=== PATIENT | male | born 1945 | race Caucasian/White ===

== ENCOUNTER → 2019-05-27 06:57 | Outpatient (CLI) | payer MEDICARE, OTHER, SELFPAY ==
[2019-05-27 08:35] LABS: Add Manual Diff / Slide Review NO; Basophils Absolute Auto 0 /uL (0-100); Basophils Percent Auto 0.3 % (0-2); Eosinophils Absolute Auto 100 /uL (0-450); Eosinophils Percent Auto 2.1 % (2-4); Hematocrit 44.1 % (41-53); Hemoglobin 14.5 g/dL (13.5-17.5); Lymphocytes Absolute Auto 2300 /uL (1100-4500); Lymphocytes Percent Auto 33.1 % (25-40); Mean Corpuscular HGB Conc 32.8 % (30-36); Mean Corpuscular Hemoglobin 31.6 PG (26-34); Mean Corpuscular Volume 96.2 fL (80-100); Monocytes Absolute Auto 500 /uL (0-900); Neutrophils Absolute Auto 3900 /uL (1500-7000); Neutrophils Percent Auto 56.5 % (50-75); Platelet Count 302 X10^3/uL (150-400); Red Blood Cell Count 4.58 X10^6/uL (4.5-5.9); Red Cell Distribution Width 13.8 % (11.6-14.8); White Blood Cell Count 6.8 X10^3/uL (4.5-11.0)
[2019-05-27 08:57] LABS: Alanine Aminotransferase 25 IU/L (21-72); Albumin 4.5 g/dL (3.5-5.0); Albumin Globulin Ratio 1.6 (1.0-2.8); Alkaline Phosphatase 44 U/L (38-126); Aspartate Aminotransferase 26 IU/L (17-59); BUN Creatinine Ratio 18.6 (6-22); Bilirubin Total 0.6 mg/dL (0.2-1.3); Blood Urea Nitrogen 13 mg/dL (9-20); Calcium 9.1 mg/dL (8.4-10.2); Carbon Dioxide 30 mmol/L (22-32); Chloride 99 mmol/L (98-107); Cholesterol 199 mg/dL (140-199); Estimated Glomerular Filt Rate > 60.0 mL/min (>60); Globulin 2.8 g/dL (1.7-4.1); Glucose 100 mg/dL (80-110); HDL Cholesterol 48 mg/dL (40-60); HEMOLYSIS < 15 (0-50); LDL Cholesterol Calculated 127 mg/dL (<100); Potassium 4.6 mmol/L (3.4-5.1); Sodium 138 mmol/L (137-145); Total Protein 7.3 g/dL (6.3-8.2); Triglycerides 122 mg/dL (35-150)
[2019-05-27 09:26] LABS: TSH w/ Reflex to FT4 2.58 uIU/mL (0.47-4.68)
[2019-05-27 09:32] LABS: Prostate Specific Antigen Scrn 4.09 ng/mL (0.1-4.0)
== END ==
PROVIDERS: Family Provider Family Medicine; PCP Family Medicine; Visit Provider Family Medicine
DX: E78.00 Pure hypercholesterolemia, unspecified (principal); Z12.5 Encounter for screening for malignant neoplasm of prostate
CPT/HCPCS: 36415; 80053; 80061; 84443; 85025; G0103

== ENCOUNTER → 2020-06-03 07:28 | Outpatient (CLI) | payer MEDICARE, OTHER, SELFPAY ==
[2020-06-03 08:36] LABS: Add Manual Diff / Slide Review NO; Basophils Absolute Auto 0 /uL (0-100); Basophils Percent Auto 0.4 % (0-2); Eosinophils Absolute Auto 100 /uL (0-450); Eosinophils Percent Auto 2.1 % (2-4); Hemoglobin 14.2 g/dL (13.5-17.5); Lymphocytes Absolute Auto 2000 /uL (1100-4500); Lymphocytes Percent Auto 31.5 % (25-40); Mean Corpuscular HGB Conc 33.8 % (30-36); Mean Corpuscular Hemoglobin 32.2 PG (26-34); Mean Corpuscular Volume 95.4 fL (80-100); Monocytes Absolute Auto 500 /uL (0-900); Monocytes Percent Auto 7.7 % (3-14); Neutrophils Absolute Auto 3700 /uL (1500-7000); Neutrophils Percent Auto 58.3 % (50-75); Platelet Count 293 X10^3/uL (150-400); Red Cell Distribution Width 13.5 % (11.6-14.8); White Blood Cell Count 6.3 X10^3/uL (4.5-11.0)
[2020-06-03 09:22] LABS: Alanine Aminotransferase 34 IU/L (<50); Albumin 4.4 g/dL (3.5-5.0); Albumin Globulin Ratio 1.5 (1.0-2.8); Alkaline Phosphatase 48 U/L (38-126); Aspartate Aminotransferase 36 IU/L (17-59); BUN Creatinine Ratio 18.8 (6-22); Bilirubin Total 0.6 mg/dL (0.2-1.3); Blood Urea Nitrogen 16 mg/dL (9-20); Calcium 9.6 mg/dL (8.4-10.2); Carbon Dioxide 33 mmol/L (22-32); Chloride 101 mmol/L (98-107); Cholesterol 191 mg/dL (140-199); Estimated Glomerular Filt Rate > 60.0 mL/min (>60); Globulin 2.9 g/dL (1.7-4.1); Glucose 122 mg/dL (80-110); HDL Cholesterol 69 mg/dL (40-60); HEMOLYSIS < 15 (0-50); LDL Cholesterol Calculated 107 mg/dL (<100); Sodium 139 mmol/L (137-145); Total Protein 7.3 g/dL (6.3-8.2); Triglycerides 73 mg/dL (35-150)
[2020-06-03 09:23] LABS: Potassium 5.6 mmol/L (3.4-5.1)
[2020-06-03 09:34] LABS: TSH w/ Reflex to FT4 2.47 uIU/mL (0.47-4.68)
[2020-06-03 09:36] LABS: Prostate Specific Antigen Scrn 3.85 ng/mL (0.1-4.0)
== END ==
PROVIDERS: Family Provider Family Medicine; PCP Family Medicine; Referring Provider Family Medicine; Visit Provider Family Medicine
DX: E78.00 Pure hypercholesterolemia, unspecified (principal); Z12.5 Encounter for screening for malignant neoplasm of prostate; Z13.1 Encounter for screening for diabetes mellitus; Z13.6 Encounter for screening for cardiovascular disorders
CPT/HCPCS: 36415; 80053; 80061; 84443; 85025; G0103

== ENCOUNTER → 2021-10-08 07:57 | Outpatient (CLI) | payer MEDICARE, OTHER, SELFPAY ==
[2021-10-09 14:42] LABS: PSA, Total 10.6 ng/mL (0.0-4.0)
== END ==
PROVIDERS: Family Provider Family Medicine; PCP Family Medicine; Referring Provider Urology; Visit Provider Urology
DX: R97.20 Elevated prostate specific antigen [PSA] (principal)
CPT/HCPCS: 36415; 84153; 84154

== ENCOUNTER → 2022-01-11 07:21 | Outpatient (CLI) | payer MEDICARE, SELFPAY ==
[2022-01-12 07:09] LABS: PSA Free % 17.8 % (.); PSA, Total 10.7 ng/mL (0.0-4.0)
== END ==
PROVIDERS: Family Provider Family Medicine; PCP Family Medicine; Referring Provider Urology; Visit Provider Urology
DX: R97.20 Elevated prostate specific antigen [PSA] (principal)
CPT/HCPCS: 36415; 84153; 84154

== ENCOUNTER → 2022-01-16 09:03 | Outpatient (CLI) | payer MEDICARE, SELFPAY ==
[2022-01-16 11:01] LABS: COVID19 -Nasal RAPID Negative (Negative)
== END ==
PROVIDERS: Family Provider Family Medicine; PCP Family Medicine; Visit Provider Surgery
DX: Z20.822 Contact with and (suspected) exposure to COVID-19 (principal); Z01.812 Encounter for preprocedural laboratory examination
CPT/HCPCS: 87635; C9803

== ENCOUNTER 2022-01-17 07:59 | Day surgery (SDC) | payer MEDICARE, OTHER, SELFPAY ==
[2022-01-17 08:23] VITALS: BMI 25.0
[2022-01-17 08:29] VITALS: BP 156/89; PULSE 60; RESP 16; TEMP 35.7; O2SAT 98
--- NOTE | 2022-01-17 08:54 | P.HP_ITS ---
History of Present Illness History of Present Illness Date Patient Seen: 01/17/22 Time Patient Seen: 08:54 Chief complaint: Colonscopy Narrative: The patient presents for colorectal screening. Most recent colonoscopy was approximately 5 years ago significant for benign polyps. No personal or family history of colon cancer. On further history denies any recent gastrointestinal symptoms with the exception of occasional constipation. No nausea, vomiting, abdominal pain, loss of appetite, unexplained weight loss, change in bowel habits, diarrhea, melena, hematochezia, or bright red blood per rectum. Patient History Medical History Alcohol use Family history of prostate cancer Urinary frequency Surgical History Status post laminectomy Family & Social History Tobacco & Substance use: Tobacco type cannabis/marijuana Smoking Status Former smoker alcohol intake current Substance Use Type marijuana Meds Home Medications and Allergies Home Medications Medication Instructions Recorded Confirmed Type multivitamin (Multiple Vitamins) 1 tab PO QDAY ##0 07/10/17 01/17/22 History Allergies Allergy/AdvReac Type Severity Reaction Status Date / Time Penicillins [PENICILLINS] Allergy Mild SWELLING Verified 01/17/22 08:21 Exam Vital Signs (past 8 hours): - 01/17/22 08:29 Temperature 96.2 F L Pulse Rate 60 Respiratory Rate 16 Blood Pressure 156/89 H Pulse Oximetry 98 Oxygen Delivery Method Room Air Oxygen Delivery Method Room Air Narrative Exam Narrative: General adult male alert oriented no acute distress Chest nonlabored respirations Abdomen soft nontender nondistended Assessment & Plan Assessment & Plan narrative: The patient requires colorectal screening and colonoscopy is recommended. Te chnical details were discussed. Risks, benefits, alternatives explained. Risks including but not limited to myocardial infarction, aspiration, bleeding, pain, missed lesion, incomplete examination, need for further radiographic studies, colonic perforation, and need for major abdominal surgery were discussed. All questions were answered to their satisfaction, and they are in agreement with this plan. Time Spent With Patient Critical Care time: I spent a total of [] minutes of critical care time on this patient's care today; this time is exclusive of procedural time.
[2022-01-17] MEDS: LACTATED RINGERS 1,000 ML 200 ML IV (09:00)
--- NOTE | 2022-01-17 09:24 | PM.OP.COLON ---
Operative Date/Time/Diagnoses Date of procedure: 01/17/22 Time of procedure: 09:25 Pre-op diagnosis: Personal history of colonic polyps Post-op diagnosis: same Procedure & Clinicians Study performed: Colonoscopy Same procedure as scheduled: Yes Indications: Personal history of colon polyps Surgeon: Marino Walters Procedure Notes Procedure in detail: Medications: Conscious sedation using 5mg IV midazolam and 100mcg IV of fentanyl The history and physical was performed/updated and the patient is ASA class is 2. The procedure was discussed in detail with the patient. Potential risks complications including infection, bleeding, missed diagnosis, perforation, need for surgery, and were explained. Their questions were answered and informed consent was obtained. Patient was brought to the procedure room and placed standard monitoring equipment. The patient's vital signs were monitored continuously throughout the entire procedure. Prior to starting time-out was performed. The patient was placed in the left lateral recumbent position. Procedural sedation was administered. Examination began with a thorough inspection of the perianal area there was no evidence of fissures, fistulae, external hemorrhoids or cutaneous malignancy. The colonoscopy scope was then placed into the anal canal and was advanced to the cecum, which was identified by the ileocecal valve, the appendiceal orifice and the confluence of the taenia. The scope was then slowly withdrawn examining colon thoroughly in all directions, irrigating it of any residual stool. FINDINGS 1. No masses or polyps 2. Diverticulosis-moderate 3. Internal hemorrhoids The patient tolerated the procedure well. They will be discharged once criteria are met. The prep was of good/excellent quality. The withdrawl time was 6 minutes. The sedation time was 12 minutes. Specimen(s): none sent Complications: none Impression: Normal colonoscopy Post-procedure Recommendations: Colonoscopy in 10 years and High fiber diet Disposition: same day surgery
[2022-01-17] MEDS: fentaNYL 250 MCG/5 ML INJ IV (09:25)
[2022-01-17] MEDS: MIDAZOLAM 5 MG/5 ML VIAL IV (09:25)
[2022-01-17 09:29] VITALS: BP 96/52; PULSE 55; RESP 12; TEMP 36.6; O2SAT 95
[2022-01-17 09:34] VITALS: BP 96/54; PULSE 53; RESP 12; O2SAT 94
[2022-01-17 09:39] VITALS: BP 106/68; PULSE 66; RESP 18; TEMP 36.6; O2SAT 97
[2022-01-17 09:41] VITALS: BP 116/73; PULSE 63; RESP 14; O2SAT 97
[2022-01-17 09:45] VITALS: BP 120/82; PULSE 66; RESP 14; O2SAT 97
== END 2022-01-17 10:28 | disposition home or self-care (01) ==
PROVIDERS: Family Provider Family Medicine; PCP Family Medicine; Referring Provider Surgery; Visit Provider Surgery
PROC: 0DJD8ZZ Inspection of Lower Intestinal Tract, Via Natural or Artificial Opening Endoscopic (ICD-10-PCS; CPT 45378; principal; 2022-01-17 09:15)
DX: Z12.11 Encounter for screening for malignant neoplasm of colon (principal); Z86.010 Personal history of colon polyps; K57.30 Diverticulosis of large intestine without perforation or abscess without bleeding; K64.8 Other hemorrhoids
CPT/HCPCS: G0105; 99152; J2250; J3010

== ENCOUNTER → 2022-02-07 06:49 | Outpatient (CLI) | payer MEDICARE, OTHER, SELFPAY ==
--- NOTE | 2022-02-07 06:51 | DI.MRI.S_ITS ---
PROCEDURE: MR PELIS WO/W CON INDICATIONS: Elevated and rising PSA TECHNIQUE: Coronal HASTE, axial T1 FSE with fat saturation, 3-plane nonbreath-hold T2 FSE. After the administration of contrast, dynamic axial, delayed axial and coronal VIBE or 2-D FLASH with fat saturation through the pelvis. Optional diffusion weighted imaging and ADC may be performed. COMPARISON: None. FINDINGS: Image quality: Diffusion weighted and dynamic contrast enhanced images are diagnostic. Prostate: Gland size is 6.6 x 4.7 x 5.7 cm; ellipsoid gland volume is 92 mL. Lesion #1: Size: 1.2 x 0.8 cm Location: Left posterior medial peripheral zone, mid gland (axial ADC series 24, image 13). T2 signal: Heterogeneous signal intensity DWI/ADC signal: Mildly hypointense on ADC images without definite or substantial corresponding DWI hyperintensity DCE: Negative MIRTHA: No large volume bulky extraprostatic extension. However there is long segment abutment of the lesion against the prostate pseudocapsule, difficult to exclude early extraprostatic extension. Seminal vesicle invasion: Absent PI-RADS: T2 signal - 3; ADC - 3; DCE - negative; Overall score: PI-RADS 3. Genitourinary system: A polypoid enhancing structure is present at the left posterior bladder wall near the left ureterovesical junction measuring approximately 1.4 x 0.7 x 1.2 cm (axial T2 series 4, image 4, coronal T2 series 5, image 10). Distal ureters are non distended. Bowel and peritoneum: No pathologic free pelvic fluid. Inferior colon and small bowel loops are normal in caliber. Nodes and vessels: No pelvic or inguinal adenopathy by size criteria. Iliac vessels are normal in caliber. Bones: No definite suspicious lesion identified. IMPRESSION: 1. A 1.2 cm lesion at the left peripheral zone, mid gland is consistent with PI-RADS category 3. As this finding is in the region of the prostate gland central zone, it could represent a pseudolesion rather than prostate carcinoma. If biopsy is performed, targeting this area may be helpful. Otherwise, attention on follow-up is recommended. 2. Incidental note of a 1.4 cm probable intraluminal bladder mass near the left ureterovesical junction. Cystoscopy may be helpful for further evaluation. Dictated by: Ran Ahmadi M.D. on 02/07/2022 at 11:03 Approved by: Ran Ahmadi M.D. on 02/07/2022 at 11:33
== END ==
PROVIDERS: Family Provider Family Medicine; PCP Family Medicine; Referring Provider Urology; Visit Provider Urology
DX: R97.20 Elevated prostate specific antigen [PSA] (principal); Z80.42 Family history of malignant neoplasm of prostate; N42.89 Other specified disorders of prostate
CPT/HCPCS: 72197; A9579

== ENCOUNTER → 2022-05-11 09:28 | Outpatient (CLI) | payer MEDICARE, OTHER, SELFPAY ==
[2022-05-12 07:18] LABS: PSA Free % 15.8 % (.); PSA, Total 10.2 ng/mL (0.0-4.0)
== END ==
PROVIDERS: Family Provider Family Medicine; PCP Family Medicine; Referring Provider Urology; Visit Provider Urology
DX: R97.20 Elevated prostate specific antigen [PSA] (principal)
CPT/HCPCS: 36415; 84153; 84154

== ENCOUNTER → 2022-11-14 08:48 | Outpatient (CLI) | payer MEDICARE, OTHER, SELFPAY ==
[2022-11-17 08:42] LABS: PSA Free % 19.1 % (.); PSA, Total 5.4 ng/mL (0.0-4.0)
== END ==
PROVIDERS: Urology; Family Provider Family Medicine; PCP Family Medicine; Referring Provider Family Medicine; Visit Provider Family Medicine
DX: N42.9 Disorder of prostate, unspecified (principal); R97.20 Elevated prostate specific antigen [PSA]; Z80.42 Family history of malignant neoplasm of prostate
CPT/HCPCS: 36415; 84153; 84154

== ENCOUNTER → 2022-11-24 07:35 | Outpatient (CLI) | payer MEDICARE, OTHER, SELFPAY ==
[2022-11-24 09:41] LABS: Testosterone 531 ng/dL (71.8-623)
== END ==
PROVIDERS: Family Provider Family Medicine; Referring Provider Urology; Visit Provider Urology
DX: R68.82 Decreased libido (principal)
CPT/HCPCS: 36415; 84403

== ENCOUNTER → 2022-12-01 07:24 | Outpatient (CLI) | payer MEDICARE, OTHER, SELFPAY ==
[2022-12-01 09:14] LABS: Testosterone 468 ng/dL (71.8-623)
== END ==
PROVIDERS: Family Provider Family Medicine; Referring Provider Urology; Visit Provider Urology
DX: R68.82 Decreased libido (principal)
CPT/HCPCS: 36415; 84403

== ENCOUNTER → 2023-05-18 13:46 | Outpatient (CLI) | payer MEDICARE, OTHER, SELFPAY ==
[2023-05-20 08:29] LABS: PSA Free % 22.8 % (.); PSA, Total 8.6 ng/mL (0.0-4.0)
== END ==
PROVIDERS: Family Provider Family Medicine; Referring Provider Urology; Visit Provider Urology
DX: R97.20 Elevated prostate specific antigen [PSA] (principal)
CPT/HCPCS: 36415; 84153; 84154

== ENCOUNTER 2023-05-30 05:44 | Emergency (ER) | payer MEDICARE, SELFPAY ==
--- NOTE | 2023-05-30 05:47 | ED.GENADULT ---
HPI - General Adult General Chief complaint: Eye Problems Stated complaint: left eye pain Time Seen by Provider: 05/30/23 05:46 History of Present Illness HPI narrative: 77-year-old male former smoker without chronic medical history presents with a chief complaint of blood in his left eye. He denies any pain or vision change. He denies any fever chills nor any drainage. He does not wear contacts. He states that yesterday he was taking a look at a new house and was in the shop in felt like something fell into his eye and he was rubbing it for much of the day. He states he woke up this morning and noted that the white part of his left eye was covered in blood. He does not take blood thinners. Related Data Home Medications Medication Instructions Recorded Confirmed multivitamin (Multiple Vitamins 1 tab PO QDAY ##0 07/10/17 11/22/22 tablet) Focus Factor- Prostate PO 02/14/22 11/22/22 Allergies Allergy/AdvReac Type Severity Reaction Status Date / Time Penicillins [PENICILLINS] Allergy Mild SWELLING Verified 11/22/22 09:16 Review of Systems Review of Systems Narrative: GENERAL: Denies chills, fatigue, malaise, fever, sweats. HEENT: See HPI RESPIRATORY: Denies dyspnea, cough, wheezing, hemoptysis, sputum. CARDIOVASCULAR: Denies chest pain, palpitations, orthopnea, edema, GASTROINTESTINAL: Denies nausea, vomiting, abdominal pain, diarrhea, constipation, melena. : Denies dysuria, frequency, incontinence, hematuria, urinary retention. MUSCULOSKELETAL: denies weakness, joint pain, or bony pain SKIN: Denies rash, skin lesions, or other NEUROLOGIC: Denies weakness, headache, numbness, change in speech, confusion, seizures, incoordination. PSYCHIATRIC: No concerning psychosocial issues. 12 point review of systems is negative except for those stated above Patient History Medical History Lower urinary tract symptoms Decreased libido Abnormal prostate by palpation Family history of prostate cancer Alcohol use Urinary frequency Surgical History Status post laminectomy Social History marital status: number of children: 1 Previous occupational history: retired Smoking Status: Former smoker alcohol intake: current substance use type: does not use caffeine: Yes Type(s) of exercise: weight lifting frequency: 5-6 times per week duration: 30-45 minutes/day Smoking Status: Former smoker Substance Use Type: marijuana Exam Narrative Exam Narrative: GEN: AOx3 and in mild distress EYES: Pupils are equal, round, and reactive to light and accommodation. Extraoccular muscles are intact bilaterally. Left eye with evidence of subconjunctival hemorrhage. Normal funduscopic exam, visual acuity noted on nurse's notes, vision is better in the affected eye than the unaffected eye. No evidence of foreign body, upper lid everted. No fluorescein uptake CHEST: Lungs are clear to auscultation bilaterally and free of wheezes, rales, or rhonchi. Heart rate is regular rhythm, there are no murmurs, clicks, rubs, or gallops. There is no chest wall tenderness. ABD: Abdomen is soft and nontender. There is no guarding or rebound. Bowel sounds are normal in all 4 quadrants. There is no mass or organomegaly. EXT: Full painless ROM of all extremities with no loss of sensation or strength. SKIN: Warm, pink, and dry. No erythema or rash Initial Vital Signs Initial Vital Signs: Vital Signs Temperature 97.6 F 05/30/23 05:54 Pulse Rate 66 05/30/23 05:54 Respiratory Rate 19 05/30/23 05:54 Blood Pressure 193/93 H 05/30/23 05:54 Pulse Oximetry 95 05/30/23 05:54 Oxygen Delivery Method Room Air 05/30/23 05:54 Course Orders Ordered: Discontinued Medications Fluorescein Sodium (Fluorescein 1 Mg Strip) 1 mg EYE-LEFT NOW ONE Stop: 05/30/23 05:51 Proparacaine HCl (Proparacaine 0.5% Ophth [place]) 1 drops EYE-LEFT NOW ONE Stop: 05/30/23 05:51 Vital Signs Vital signs: Vital Signs - 8 hr 05/30/23 05:54 Temperature 97.6 F Pulse Rate 66 Respiratory Rate 19 Blood Pressure 193/93 H Pulse Oximetry 95 Oxygen Delivery Method Room Air Medical Decision Making [facility] Narrative Medical decision making narrative: [77] year old patient presents with blood in left eye Multiple etiologies for patient's symptoms considered including, but not limited to: [Subconjunctival hemorrhage versus hyphema versus corneal abrasion versus foreign body versus other] Prior Charts reviewed in our EMR Primary Historian: patient Patient has reassuring history and physical exam. No pain, no vision change, does not use contacts. [place] like something may have irritated his eye yesterday, he rubbed it frequently and woke up with blood in the absence of other symptoms. Patient's symptoms improved over duration of stay with above-stated therapies. Findings and discharge diagnosis discussed with patient/family followed by verbalization of understanding Return precautions discussed with patient/family whom verbalize understanding of diagnosis and plan Discharge Plan Departure Patient Disposition: Home Clinical Impression: Subconjunctival hemorrhage Instructions: DI for Subconjunctival Hemorrhage Activity Restrictions/Additional Instructions: *You have been diagnosed with [left eye subconjunctival hemorrhage. As we discussed your history and physical exam are reassuring and there is no evidence of any diagnosis that would require a specific or immediate intervention] *What to do: *Please continue to take your regular medications as directed. [ ] New medication prescriptions sent to your pharmacy: [ ] [ ] New medication written as a paper prescription [ ] No new medications given *Please follow up with Dr. De La Rosa at [facility]. Please call the office later this morning, let them know you were seen in the emergency department and we would like you seen in follow-up. *Return to Emergency Department if you should have any new, worsening or concerning symptoms, such as eye pain, vision change or other concerning symptoms Prescriptions: No Action multivitamin [Multiple Vitamins] 1 EACH tablet 1 tab PO QDAY Qty: 0 Focus Factor- Prostate PO Referrals: Tyson De La Rosa MD [Physician] - Stand Alone Forms: Patient Portal/API
[2023-05-30 05:54] VITALS: BP 193/93; PULSE 66; RESP 19; TEMP 36.4; O2SAT 95; BMI 25.0
[2023-05-30] MEDS: FLUORESCEIN 1 MG STRIP EYE-LEFT (06:00)
[2023-05-30] MEDS: PROPARACAINE 0.5% OPHTH SOL 1 DROPS EYE-LEFT (06:00)
== END 2023-05-30 06:21 | disposition home or self-care (01) ==
PROVIDERS: Emergency Provider Emergency Medicine; Family Provider Family Medicine
DX: H11.32 Conjunctival hemorrhage, left eye (principal)
CPT/HCPCS: 99282

== ENCOUNTER → 2023-09-17 07:29 | Outpatient (CLI) | payer MEDICARE, OTHER, SELFPAY ==
[2023-09-19 09:43] LABS: PSA Free % 21.6 % (.); PSA, Total 6.4 ng/mL (0.0-4.0)
== END ==
PROVIDERS: Family Provider Family Medicine; Referring Provider Urology; Visit Provider Urology
DX: R97.20 Elevated prostate specific antigen [PSA] (principal)
CPT/HCPCS: 36415; 84153; 84154

== ENCOUNTER → 2023-12-10 08:03 | Outpatient (CLI) | payer MEDICARE, OTHER, SELFPAY ==
--- NOTE | 2023-12-10 08:04 | DI.US.S_ITS ---
PROCEDURE: US ABDOMEN LIMITED INDICATIONS: RIGHT INGUINAL PAIN TECHNIQUE: Real-time focused scanning was performed of the abdomen, with image documentation. COMPARISON: None. FINDINGS: Scanning is performed at the area of clinical concern within the right inguinal region. At this site, no findings of hernia can be seen. No masses or other significant abnormality can be seen. IMPRESSION: Negative ultrasound, without a right inguinal hernia seen. Dictated by: Lion Andrews M.D. on 12/10/2023 at 10:27 Approved by: Lion Andrews M.D. on 12/10/2023 at 10:28
== END ==
LOC: US 08:04
PROVIDERS: PCP Family Medicine; Referring Provider Family Medicine; Visit Provider Family Medicine
DX: R10.31 Right lower quadrant pain (principal)
CPT/HCPCS: 76705

== ENCOUNTER → 2024-03-06 08:18 | Outpatient (CLI) | payer MEDICARE, OTHER, SELFPAY | PROVIDERS: PCP Family Medicine; Referring Provider Nurse Practitioner Family; Visit Provider Nurse Practitioner Family | DX: J02.9 Acute pharyngitis, unspecified (principal) | CPT/HCPCS: 87070 ==

== ENCOUNTER → 2024-03-14 07:31 | Outpatient (CLI) | payer MEDICARE, OTHER, SELFPAY ==
[2024-03-15 07:36] LABS: PSA Free % 20.1 % (.); PSA, Total 7.5 ng/mL (0.0-4.0)
== END ==
PROVIDERS: PCP Family Medicine; Referring Provider Urology; Visit Provider Urology
DX: R97.20 Elevated prostate specific antigen [PSA] (principal)
CPT/HCPCS: 36415; 84153; 84154

== ENCOUNTER → 2024-03-26 08:05 | Outpatient (CLI) | payer MEDICARE, OTHER, SELFPAY | PROVIDERS: PCP Family Medicine; Referring Provider Urology; Visit Provider Urology | DX: R39.9 Unspecified symptoms and signs involving the genitourinary system (principal); R97.20 Elevated prostate specific antigen [PSA]; N40.1 Benign prostatic hyperplasia with lower urinary tract symptoms; Z68.26 Body mass index [BMI] 26.0-26.9, adult | CPT/HCPCS: 81002; 87077; 87086; 87186; 99214 ==

== ENCOUNTER → 2024-06-03 11:34 | Outpatient (CLI) | payer MEDICARE, OTHER, SELFPAY ==
[2024-06-03 12:26] LABS: Estimated Glomerular Filt Rate > 60 mL/min (>60)
== END ==
PROVIDERS: PCP Family Medicine; Referring Provider Radiology Diagnostic Radiology; Visit Provider Radiology Diagnostic Radiology
DX: N40.1 Benign prostatic hyperplasia with lower urinary tract symptoms (principal)
CPT/HCPCS: 36415; 82565

== ENCOUNTER → 2024-06-04 09:49 | Outpatient (CLI) | payer MEDICARE, OTHER, SELFPAY ==
--- NOTE | 2024-06-04 09:50 | DI.CT.S_ITS ---
PROCEDURE: CT ABDOMEN PELVIS WO/W CON INDICATIONS: Hematuria TECHNIQUE: Optional 5 mm thick noncontrast images acquired from the diaphragm to the symphysis pubis. After the administration of intravenous contrast, 5 mm thick images acquired from the diaphragm to the symphysis pubis after a 10-minute delay. 2 mm thick coronal and sagittal reformats were then performed of the kidneys and ureters. For radiation dose reduction, the following was used: automated exposure control, adjustment of mA and/or kV according to patient size. COMPARISON: None. FINDINGS: Image quality: Diagnostic. Kidneys and Ureters: Both kidneys are normal in size, without hydronephrosis or nephrolithiasis. No perinephric fat stranding. There is normal bilateral renal enhancement. Renal calyces appear normal in morphology when filled with contrast. Opacified portions of both ureters demonstrate normal caliber. Bladder: The bladder wall is trabeculated. Multiple nodularities are seen along the bladder wall, difficult to distinguish between trabeculation and a small mass. OTHER: Lower chest: Unremarkable. Liver: No solid mass. Gallbladder: No radiopaque gallstones or wall thickening. Biliary ducts: No biliary dilation. Pancreas: No ductal dilation. Spleen: Size is within normal limits. Adrenal Glands: No adrenal nodules. Stomach and Bowel: Normal colonic caliber, without significant wall thickening. Colonic diverticulosis without evidence of diverticulitis. Peritoneum: No abnormal intraperitoneal fluid. No free air. Ventral Wall: No hernia. Abdominal Nodes: No retroperitoneal or mesenteric adenopathy by size criteria. Vessels: Aorta and inferior vena cava are normal in size. PELVIS: Pelvic Organs: Prostatomegaly. Pelvic Nodes: No enlarged lymph nodes. Miscellaneous: Moderate right inguinal hernia containing fat. Bones: No aggressive osseous abnormality. Degenerative disc disease of the lumbar spine. IMPRESSION: No nephrolithiasis or filling defects within the opacified renal collecting system or ureters. The bladder wall is trabeculated. Multiple nodularities are seen along the bladder wall, difficult to distinguish between trabeculation and a small mass. Direct visualization with cystoscopy is recommended. Dictated by: Elton Martínez M.D. on 06/04/2024 at 11:33 Approved by: Elton Martínez M.D. on 06/04/2024 at 11:45
== END ==
LOC: CT 09:50
PROVIDERS: PCP Family Medicine; Referring Provider Urology; Visit Provider Urology
DX: N40.1 Benign prostatic hyperplasia with lower urinary tract symptoms (principal); N32.89 Other specified disorders of bladder; K40.90 Unilateral inguinal hernia, without obstruction or gangrene, not specified as recurrent; R39.9 Unspecified symptoms and signs involving the genitourinary system; R31.9 Hematuria, unspecified; R97.20 Elevated prostate specific antigen [PSA]; Z80.42 Family history of malignant neoplasm of prostate
CPT/HCPCS: 74178; Q9967

== ENCOUNTER → 2024-09-16 08:54 | Outpatient (CLI) | payer OTHER, SELFPAY ==
[2024-09-16 11:14] LABS: Prostate Specific Antigen 5.51 ng/mL (0.10-4.00)
== END ==
PROVIDERS: PCP Family Medicine; Referring Provider Urology; Visit Provider Urology
DX: R97.20 Elevated prostate specific antigen [PSA] (principal)
CPT/HCPCS: 36415; 84153

== ENCOUNTER → 2024-11-05 16:41 | Outpatient (CLI) | payer OTHER, SELFPAY ==
[2024-11-05 18:48] LABS: Erythrocyte Sedimentation Rate 6 MM/HR (0-15)
[2024-11-05 18:50] LABS: C-Reactive Protein Quant < 0.5 mg/dL (<1.0)
== END ==
PROVIDERS: PCP Family Medicine; Referring Provider Ophthalmology; Visit Provider Ophthalmology
DX: H35.363 Drusen (degenerative) of macula, bilateral (principal)
CPT/HCPCS: 36415; 85651; 86140

== ENCOUNTER → 2024-12-19 07:07 | Outpatient (CLI) | payer OTHER, SELFPAY ==
--- NOTE | 2024-12-19 07:08 | DI.MRI.S_ITS ---
PROCEDURE: MR HEAD/BRAIN WO/W CON INDICATIONS: optic neuropathy TECHNIQUE: Noncontrast axial T1 spin echo, axial T2 fast spin echo, sagittal and axial FLAIR, coronal T2 fast spin echo, axial gradient echo, axial diffusion and ADC through the brain. After the administration of contrast, axial and coronal and sagittal T1 spin echo with fat saturation through the brain. COMPARISON: None. FINDINGS: Image quality: Excellent. CSF spaces: Basal cisterns are patent. No extra-axial fluid collections. Ventricles are normal in size and shape. Brain: No midline shift. No intracranial bleeds or masses. No abnormal intracranial enhancement. There is cerebral volume loss for age. There is periventricular white matter chronic small vessel ischemic change. The brainstem appears normal. Diffusion-weighted images demonstrate no acute infarct. No chronic ischemic insults. Normal intravascular flow voids are present. Skull and face: Calvarial marrow is normal in signal. Orbits appear normal. Sinuses: Sinuses and mastoids appear clear. IMPRESSION: 1. No acute intracranial process. 2. Mild to moderate atrophy and chronic microvascular ischemic changes. Dictated by: Virgen Zambrano M.D. on 12/19/2024 at 9:58 Approved by: Virgen Zambrano M.D. on 12/19/2024 at 10:00
== END ==
LOC: MRI 07:08
PROVIDERS: PCP Family Medicine; Referring Provider Family Medicine; Visit Provider Family Medicine
DX: H46.9 Unspecified optic neuritis (principal); G31.9 Degenerative disease of nervous system, unspecified
CPT/HCPCS: 70553; A9579

== ENCOUNTER → 2025-01-14 07:49 | Outpatient (CLI) | payer OTHER, SELFPAY ==
--- NOTE | 2025-01-14 07:51 | DI.CT.S_ITS ---
PROCEDURE: CT ANGIO HEAD AND NECK INDICATIONS: optic neuropathy TECHNIQUE: After the administration of 80 milliliters Isovue-300 intravenous contrast, 1 mm thick sections acquired from the aortic arch through the [place]. 3- dimensional zmxzhcf-kputukmmc-edytkruyou (MIP) and/or volume rendering reformats were acquired of the central intracranial vasculature and neck separately. For radiation dose reduction, the following was used: automated exposure control, adjustment of mA and/or kV according to patient size. COMPARISON: [facility], MR, MR HEAD/BRAIN WO/W CON, 12/19/2024, 7:32. FINDINGS: Image quality: Diagnostic. Cerebral CT Angiogram: Internal carotid arteries: No acute findings. Intracranial ICA are patent with no significant stenosis. No occlusion. No aneurysm. Anterior cerebral arteries: Unremarkable. No significant stenosis. No occlusion. No aneurysm. Middle cerebral arteries: Unremarkable. No significant stenosis. No occlusion. No aneurysm. Posterior cerebral arteries: Unremarkable. No significant stenosis. No occlusion. No aneurysm. Basilar artery: Unremarkable. No significant stenosis. No occlusion. 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 Vertebral arteries: Unremarkable as visualized. Dural venous sinuses: Flow artifact versus nonocclusive thrombus involving the right transverse sinus right sigmoid sinus and proximal right internal jugular vein. Other: Arterial phase appearance of the brain parenchyma is unremarkable. There is normal contrast opacification of the ophthalmic arteries. Neck CT Angiogram: Internal carotid arteries: Unremarkable. No significant stenosis. No dissection or occlusion. Common carotid arteries: Unremarkable. No significant stenosis. No dissection or occlusion. External carotid arteries: Unremarkable. No occlusion. Vertebral arteries: Unremarkable. No significant stenosis. No dissection or occlusion. Aortic Arch and Mediastinum: Partially visualized aortic arch unremarkable without evidence of aneurysm. Origins of the great vessels unremarkable. Other: Arterial phase soft tissues of the neck and chest are unremarkable. Spine degenerative disc disease and facet arthropathy. IMPRESSION: No arterial large vessel occlusion, significant vascular stenosis or vascular dissection. 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 Flow artifact versus nonocclusive thrombus involving the right transverse sinus, right sigmoid sinus and proximal right internal jugular vein. Recommend CT venogram or MR venogram for additional evaluation. Any quantitative measurements of stenosis were performed using NASCET criteria. Dictated by: Ngoc Blake MD, PhD on 01/14/2025 at 9:23 Approved by: Ngoc Blake MD, PhD on 01/14/2025 at 9:32
[2025-01-14 08:16] LABS: Estimated Glomerular Filt Rate > 60 mL/min (>60)
== END ==
PROVIDERS: PCP Family Medicine; Referring Provider Family Medicine; Visit Provider Family Medicine
DX: H46.9 Unspecified optic neuritis (principal); I72.5 Aneurysm of other precerebral arteries
CPT/HCPCS: 36415; 70496; 70498; 82565; Q9967

== ENCOUNTER → 2025-01-22 19:34 | Outpatient (CLI) | payer OTHER, SELFPAY ==
--- NOTE | 2025-01-22 19:36 | DI.MRI.S_ITS ---
PROCEDURE: MR VENOGRAPHY HEAD WO CON COMPARISON: [facility], MR, MR HEAD/BRAIN WO/W CON, 12/19/2024, 7:32. [facility], CT, CT ANGIO HEAD AND NECK, 01/14/2025, 8:31. Technique: MR venogram images obtained of the head without contrast. INDICATIONS: Stroke, abnormal head CT FINDINGS AND IMPRESSION: Uidk-sy-jaiixg venography images. There is no acute thrombus identified in the intracranial venous dural sinuses. Prior CT abnormality likely represents mixing artifact from injected contrast reflux. Please note the brain parenchyma, jugular vein and arteries are not well assessed on this study. Dictated by: Gallito Rojas M.D. on 01/22/2025 at 20:36 Approved by: Gallito Rojas M.D. on 01/22/2025 at 20:42
== END ==
LOC: MRI 19:35
PROVIDERS: PCP Family Medicine; Referring Provider Family Medicine; Visit Provider Family Medicine
DX: I63.9 Cerebral infarction, unspecified (principal); I72.5 Aneurysm of other precerebral arteries; R93.0 Abnormal findings on diagnostic imaging of skull and head, not elsewhere classified
CPT/HCPCS: 70544

== ENCOUNTER → 2025-03-18 08:42 | Outpatient (CLI) | payer OTHER, SELFPAY ==
[2025-03-20 07:09] LABS: PSA, Total 8.6 ng/mL (0.0-4.0)
== END ==
PROVIDERS: PCP Family Medicine; Referring Provider Urology; Visit Provider Urology
DX: N40.1 Benign prostatic hyperplasia with lower urinary tract symptoms (principal); R97.20 Elevated prostate specific antigen [PSA]
CPT/HCPCS: 36415; 84153; 84154

== ENCOUNTER → 2025-04-15 11:28 | Outpatient (CLI) | payer OTHER, SELFPAY ==
[2025-04-15 12:03] LABS: Appearance Urine UA CLEAR; Bilirubin Urine UA 1+ (NEGATIVE); Color Urine UA YELLOW; Glucose Urine UA NEGATIVE (Negative); Ketones Urine UA NEGATIVE (NEGATIVE); Leukocyte Esterase Urine UA TRACE (NEGATIVE); Nitrite Urine UA NEGATIVE (Negative); Occult Blood Urine UA 3+ (Negative); Protein Urine UA 1+ (Negative); Specific Gravity Urine UA 1.010 (1.000-1.035); Urobilinogen Urine UA 1.0 E.U./dL (0.2); pH Urine UA 7.5 (4.5-8.0)
[2025-04-15 12:11] LABS: Culture Indicated Urine Specimen Cultured; Ictotest Urine Positive (Negative)
== END ==
PROVIDERS: PCP Family Medicine; Referring Provider Urology; Visit Provider Urology
DX: N40.1 Benign prostatic hyperplasia with lower urinary tract symptoms (principal); R31.9 Hematuria, unspecified
CPT/HCPCS: 81001; 87077; 87086

== ENCOUNTER → 2025-06-26 07:23 | Outpatient (CLI) | payer OTHER, SELFPAY ==
--- NOTE | 2025-06-26 07:24 | DI.US.S_ITS ---
PROCEDURE: US HERNIA INDICATIONS: RIGHT GROIN HERNIA ?REOCCURENCE TECHNIQUE: Real-time focused scanning was performed of the abdomen, with image documentation. COMPARISON: None. FINDINGS AND IMPRESSION: At the area of palpable abnormality in the right inguinal region, moderate size fat containing non reducible hernia is seen, neck defect measuring about 1.5 cm. Sac measures 5.7 x 3.6 cm. Dictated by: Gallito Rojas M.D. on 06/30/2025 at 9:07 Approved by: Gallito Rojas M.D. on 06/30/2025 at 9:08
== END ==
LOC: US 07:23
PROVIDERS: PCP Family Medicine; Referring Provider Family Medicine; Visit Provider Family Medicine
DX: K40.30 Unilateral inguinal hernia, with obstruction, without gangrene, not specified as recurrent (principal); R10.31 Right lower quadrant pain; Z98.890 Other specified postprocedural states; Z87.19 Personal history of other diseases of the digestive system
CPT/HCPCS: 76705